=== PATIENT | male | born 1965 | race Caucasian/White ===

== ENCOUNTER 2016-11-11 06:22 | Inpatient (IN) | payer BC, MEDICARE ==
[2016-10-15 12:29] VITALS: BMI 29.0
[2016-10-15 12:38] VITALS: BP_SYST 120; RESP 18; TEMP 97.8
[2016-11-11] VITALS (25 sets, daily range): BP systolic 102–156; RESP 13–20; TEMP 97.5–98.2; Ht 182.9 cm; Wt 96.9 kg
[~2016-11-11] VITALS: Ht 182.9 cm; Wt 96.9 kg
[2016-11-11] MEDS ORDERED: CEFAZOLIN 2,000 MG in SODIUM CHLORIDE 0.9% 100 ML IV ONE (06:30)
[2016-11-11] MEDS ORDERED: MIDAZOLAM 2 MG/2 ML INJ IV ONE (06:45)
[2016-11-11] MEDS ORDERED: LIDOCAINE 1% BUFFERED 1 ML SYR INTRADERM PRN (06:45)
[2016-11-11] MEDS ORDERED: LACT RINGERS 1,000 ML IV SCH (06:45)
[2016-11-11] MEDS ORDERED: GLYCOPYRROLATE 0.2 MG/ML VIAL IV ONE (06:45)
[2016-11-11] MEDS ORDERED: MORPHINE 2 MG/ML SYR IV PRN ×2 (07:15→11:35)
[2016-11-11] MEDS ORDERED: MORPHINE 4 MG/ML SYR IV PRN ×2 (07:15→11:35)
[2016-11-11] MEDS ORDERED: ONDANSETRON 4 MG VIAL IV PRN ×2 (07:15→11:35)
[2016-11-11] MEDS ORDERED: OXYCODONE 5 MG TAB PO PRN (07:15)
[2016-11-11] MEDS: MEPERIDINE 25 MG/ML IV PRN ×2 (09:51→10:21)
[2016-11-11] MEDS: DILAUDID 1 MG/ML AMP IV PRN ×2 (09:58→10:22)
[2016-11-11] MEDS ORDERED: PROPOFOL 20 ML PER ML IV ONE (10:05)
[2016-11-11] MEDS ORDERED: FENTANYL 100 MCG/2 ML AMP IV ONE (10:05)
[2016-11-11] MEDS ORDERED: SUGAMMADEX 200 MG/2 ML VIAL IV ONE (10:05)
[2016-11-11] MEDS ORDERED: ROCURONIUM 50 MG VIAL IV ONE (10:05)
[2016-11-11] MEDS ORDERED: ONDANSETRON 4 MG VIAL IV PUSH ONE (10:05)
[2016-11-11] MEDS ORDERED: KETAMINE INJ 50 MG/ML VIAL IV ONE (10:05)
[2016-11-11] MEDS ORDERED: DEXAMETHASONE 4 MG/ML VIAL IV ONE (10:05)
[2016-11-11] MEDS ORDERED: DILAUDID 1 MG/ML AMP IV ONE (10:05)
[2016-11-11] MEDS ORDERED: LIDOCAINE 2% SYR 5 ML IV ONE (10:05)
[2016-11-11] MEDS ORDERED: humuLIN REG INSULIN IV PUSH ONE (10:35)
[2016-11-11] MEDS ORDERED: BUPIVACA/EPI 0.5% 50ML NERVEBLOCK ONE (10:36)
[2016-11-11] MEDS ORDERED: BACITRACIN 50,000 UNITS INJ IRRIG ONE (10:36)
[2016-11-11] MEDS ORDERED: THROMBIN 5000 UNIT KIT TOPICAL ONE (10:36)
[2016-11-11] MEDS ORDERED: GELATIN SPONGE 12 CM2 TOPICAL ONE (10:36)
[2016-11-11] MEDS ORDERED: SODIUM CHLORIDE 0.9% 1,000 ML IV SCH (11:35)
[2016-11-11] MEDS ORDERED: ACETAMINOPHEN 325 MG TAB PO PRN (11:35)
[2016-11-11] MEDS ORDERED: DEXTROSE 50% SYRINGE 50 ML IV PRN (11:35)
[2016-11-11] MEDS ORDERED: OXYCODONE/APAP 5/325 TAB PO PRN (11:35)
[2016-11-11] MEDS ORDERED: GLUCAGON 1 MG VIAL IM PRN (11:35)
[2016-11-11] MEDS: TIZANIDINE 4 MG TAB PO SCH ×3 (11:35→23:35)
[2016-11-11] MEDS ORDERED: CHLORASEPTIC 180 ML BTL PO PRN (11:35)
[2016-11-11] MEDS: DULoxetine 30 MG CAP PO SCH (11:53)
[2016-11-11] MEDS: PANTOPRAZOLE 40 MG TAB PO SCH (12:00)
[2016-11-11] MEDS: LISINOPRIL/HCTZ 20-25 TAB PO SCH (12:37)
[2016-11-11] MEDS: OXYCODONE/APAP 5/325 TAB PO PRN ×2 (13:29→20:38)
[2016-11-11] MEDS: CEFAZOLIN 2,000 MG in SODIUM CHLORIDE 0.9% 100 ML IV SCH (16:55)
[2016-11-11] MEDS: SITAGLIPTIN 50 MG TAB PO SCH (21:00)
[2016-11-11] MEDS ORDERED: TRAZODONE 50 MG TAB PO SCH (21:00)
[2016-11-11] MEDS: DOCUSATE SOD 100 MG CAP PO SCH (21:45)
[2016-11-11] MEDS: glyBURIDE 5 MG TAB PO SCH (21:45)
[2016-11-11] MEDS: ALPRAZOLAM 1 MG TAB PO SCH (21:46)
[2016-11-11] MEDS: OPANA PO SCH (22:40)
[2016-11-12] VITALS: BP_SYST 129; RESP 20; TEMP 97.8
[2016-11-12] MEDS: CEFAZOLIN 2,000 MG in SODIUM CHLORIDE 0.9% 100 ML IV SCH ×2 (00:07→06:39)
[2016-11-12 05:12] VITALS: BP_SYST 103; RESP 20; TEMP 97.5
[2016-11-12] MEDS: TIZANIDINE 4 MG TAB PO SCH (05:35)
[2016-11-12] MEDS: PANTOPRAZOLE 40 MG TAB PO SCH (06:38)
[2016-11-12 07:31] VITALS: BP_SYST 119; RESP 16; TEMP 98.3
[2016-11-12] MEDS: OPANA PO SCH (08:21)
[2016-11-12] MEDS: DULoxetine 30 MG CAP PO SCH (08:22)
[2016-11-12] MEDS: ALPRAZOLAM 1 MG TAB PO SCH (08:22)
[2016-11-12] MEDS: glyBURIDE 5 MG TAB PO SCH (08:22)
[2016-11-12] MEDS: LISINOPRIL/HCTZ 20-25 TAB PO SCH (08:22)
[2016-11-12] MEDS: DOCUSATE SOD 100 MG CAP PO SCH (08:23)
[2016-11-12] MEDS: SITAGLIPTIN 50 MG TAB PO SCH (08:23)
[2016-11-12 10:21] VITALS: BP_SYST 119; RESP 16; TEMP 98.3
== END 2016-11-12 10:57 | disposition home or self-care (01) | DRG 473 ==
LOC: ENRESERVTM → ENRESERVDT → SDS 06:22 → ENPENDDIS 06:22 → 5THW 11:51
PROVIDERS: ADMIT Neurological Surgery; ATTEND Neurological Surgery
PROC: 0RG10K0 Fusion of Cervical Vertebral Joint with Nonautologous Tissue Substitute, Anterior Approach, Anterior Column, Open Approach (ICD-10-PCS; principal; 2016-11-11 07:25)
DX: M48.02 Spinal stenosis, cervical region (principal); M54.12 Radiculopathy, cervical region
CPT/HCPCS: 76000; 82947